=== PATIENT | female | born 1980 | race Caucasian/White ===

== ENCOUNTER 2020-08-10 18:41 | Emergency (ER) | payer BC ==
[~2020-08-10] VITALS: Ht 162.6 cm; Wt 72.1 kg
[~2020-08-10 18:41] MED LIST: ALLEGRA180 MG PO; ARMOUR THYROID60 MG PO; CALCARB 600 W-1 EACH PO; CHANTIX1 MG PO; IBUPROFEN400 MG PO; IBUPROFEN800 MG PO; LEVOTHROID137 MCG PO; VICODIN 5-5001 EACH PO
--- OUTSIDE RECORDS SUMMARY | 2020-08-10 18:44 | XMS ---
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 EJuliocesar VISIT COUNT (12 MO.) [address] [place] [address] TOTAL 8 NOTE: Visits indicate total known visits. ED/UCC VISIT TRACKING (12 MO.) 08/10/2020 18:42 [facility] [place] TYPE: Emergency COMPLAINT: - LT TOE INJURY 07/24/2020 11:32 [facility] [place] TYPE: Emergency DIAGNOSES: - Postprocedural hemorrhage of a genitourinary system organ or structure following a genitourinary system procedure - POST OP ISSUES 07/21/2020 17:55 [facility] [place] TYPE: Emergency DIAGNOSES: - POST OP BLEEDING - Postprocedural hemorrhage of a genitourinary system organ or structure following a genitourinary system procedure 07/15/2020 18:51 [facility] [place] TYPE: Emergency DIAGNOSES: - Abnormal uterine and vaginal bleeding, unspecified - vaginal bleeding 06/09/2020 10:21 [facility] [place] TYPE: Emergency DIAGNOSES: - Unspecified ovarian cyst, left side - Pelvic and perineal pain - OVARY PAIN HX OF CYST 12/21/2019 15:16 [facility] [place] TYPE: Emergency DIAGNOSES: - BLOOD IN STOOL - Lower abdominal pain, unspecified 12/14/2019 05:[address] [facility] [place] TYPE: Emergency DIAGNOSES: - Lower abdominal pain, unspecified - ABD PAIN 10/08/2019 17:[address] [facility] [place] TYPE: Emergency DIAGNOSES: - Unspecified injury of abdomen, initial encounter - POSS MUSCLE STRAIN INPATIENT VISIT TRACKING (12 MO.) No inpatient visits to display in this time frame [email or web address]
[2020-08-10] MEDS ORDERED: LEVOTHYROXINE125 MCG PO (18:52)
[2020-08-10] MEDS ORDERED: VALACYCLOVIR500 MG PO (18:52)
[2020-08-10] MEDS ORDERED: IBUPROFEN600 MG PO (18:53)
== END 2020-08-10 20:04 | disposition home or self-care (01) ==
LOC: ED 18:41
DX: S91.202A Unspecified open wound of left great toe with damage to nail, initial encounter (principal); W22.8XXA Striking against or struck by other objects, initial encounter; F17.200 Nicotine dependence, unspecified, uncomplicated; Z79.899 Other long term (current) drug therapy
CPT/HCPCS: 11760; 99283-25

== ENCOUNTER 2021-05-10 05:45 | Day surgery (SDC) | payer OTHER ==
[~2021-05-10] VITALS: Ht 162.6 cm; Wt 77.0 kg
[~2021-05-10 05:45] MED LIST changes: +IBUPROFEN600 MG PO; +LEVOTHYROXINE125 MCG PO; +VALACYCLOVIR500 MG PO
--- NOTE | 2021-05-10 08:38 | NUR ---
05/10/21 0838 Deanna Zimmerman 0836 PATIENT AWAKE BUT DROWSY. RESP EVEN AND UNLABORED, COUGHING ON ARRIVAL. MASK AT 6 LITERS. PILLOW AND ICE TO ABD.
--- NOTE | 2021-05-10 09:28 | NUR ---
0920: PT TO DS RM 5 FROM PACU AWAKE AND ALERT. PT RATES PAIN 8/10 AND STATES "A LITTLE, BUT NOT BAD" WHEN ASKED ABOUT NAUSEA. PT TOLERATES WATER AND JELLO WITH NO COMPLAINTS OF NAUSEA. [facility] NALDOER PLACED ON WARM AND PT TUCKS UNDER BLANKETS. CALL LIGHT WITHIN REACH, DC CRITERIA EXPLAINED.
[2021-05-10] MEDS ORDERED: HYDROCODON-ACE1 EAC8 PO (09:46)
--- NOTE | 2021-05-10 10:07 | NUR ---
0940: PT SPOUSE TO DS DEPT TO RETRIEVE PAPER RX TO DROP AT LOCAL PHARMACY. 1000: PT USES CALL LIGHT TO ALERT DS STAFF OF URGE TO VOID, PT ASSISTED TO SIDE OF BED PRIOR TO STANDING, DENIES DIZZINESS OR NAUSEA WITH POSITION CHANGE. PT AMBULATES WITH STEADY GAIT AND RN ASSIST TO BATHROOM, ABLE TO VOID APPROX 400 MLS YELLOW URINE. LINENS DAMP AND BEDDING CHANGED AT THIS TIME. PT BACK TO DS RM 5 AND SPOUSE IN ROOM AT THIS TIME. [facility] HUGGER ON WARM PLACED UNDER BLANKETS AND SCD'S REMOVED PER PT REQUEST- PT EDUCATED TO PUMP FEET/MOVE LEGS WHILE OFF. CALL LIGHT WITHIN REACH.
--- NOTE | 2021-05-10 10:11 | NUR ---
PT ALERT, ORIENTED AND SEEMS TO BE ENJOYING THE QUIET. PT PLEASANT, ALL OF HER QUESTIONS ASKED ANSWERED. PT'S WILL PICKUP FOLLOWING DC. PT REQUFESTED PRAYER, WILL FOLLOW NEEDED
--- NOTE | 2021-05-10 10:29 | NUR ---
PT RESTING IN BED WITH SPOUSE AT BEDSIDE. PT STATES, "PAIN IS A LITTLE BETTER WITH THAT MEDICATION" AND RATES PAIN 7/10. PT OFFERED IV MED FOR BREAKTHROUGH PAIN BUT DECLINES SHE DOES NOT WANT TO STAY ANY LONGER, WOULD LIKE TO DC HOME. PT ENCOURAGEDT TO GET DRESSED AND OPEN CURTIAN WHEN FINISHED.
--- NOTE | 2021-05-10 10:53 | NUR ---
1040: PT OPENS CURTAIN AND AMBULATES TO BATHROOM. IV REMOVED WNL AND PRESSURE DRESSING PLACED. PULLS PERSONAL VEHICLE TO FRONT ENTRANCE OF HOSPITAL. DC INSTRUCTIONS PRESENTED VERBALLY AND WRITTEN TO PT. PT DC VIA WC FROM RM 5 TO HOME.
--- NOTE | 2021-05-10 18:38 | OR ---
[facility] [address] [place] [place], [place] [address] Signed DATE OF OPERATION: 05/10/2021 SURGEON: Cate Uribe MD PREOPERATIVE DIAGNOSIS: Incarcerated umbilical hernia (5 mm). POSTOPERATIVE DIAGNOSIS: Incarcerated umbilical hernia (5 mm). PROCEDURE: Primary umbilical herniorrhaphy with intraabdominal 4.3 cm Ventralex mesh. ESTIMATED BLOOD LOSS: None. INDICATIONS: Mohamud is a 40-year-old female, who works at a local [employer]. It is very physical heavy work. She has to operate [employer]. 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 On January 02, 2021, she was pulling the boards and felt burning and pulling in her mid abdomen and around her umbilicus. 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 She was sent to the [facility] that same day. They ordered a CT scan performed on January 09, 2021. It demonstrated an umbilical hernia containing incarcerated fat. She saw her primary care provider on January 12, 2021. She had been placed on light duty status. She was asked to see me as a general surgeon. She said it has been difficult to sleep. She is often nauseated from the pain. It is worse with any increased activity. In the office one could palpate a small umbilical hernia at the base of the umbilicus, it was incarcerated and tender. No local signs or symptoms of infection. I gave her our brochure on hernias. We had reviewed the nature of an umbilical hernia. We reviewed primary suture repair versus mesh repair. She understands expected intraop and postop course. There is risk including, but not limited to bleeding, infection, scarring, change in contour of the skin, damage to bowel, infection of mesh, requiring removal, recurrent hernias, and chronic pain. She had expressed understanding and wished to proceed. Unfortunately, she and her ended up with COVID, so her surgery was delayed. She presents today for her surgery. DESCRIPTION OF PROCEDURE: I met with Mohamud in the preop area. We have reviewed her above findings. After this, she was taken into the operating room and placed in the supine position under general Electronically Signed By: CATE URIBE MD 05/10/21 1838 PATIENT NAME: MOHAMUD PHAM OPERATIVE REPORT DATE OF : 84 REPORT #: [id number] PHYSICIAN: CATE URIBE MD PCP: VANESSA GUTIERREZ REPORT IS CONFIDENTIAL AND NOT TO BE RELEASED WITHOUT AUTHORIZATION [facility] [address] [place], [place] [address] Signed anesthesia. She was given preoperative antibiotics along with subcutaneous heparin. SCDs were utilized. She was prepped and draped in the usual sterile fashion. A standard infraumbilical transverse incision was made and carried down around the umbilicus bluntly and with the cautery. The hernia was from the fascial defect with the help of cautery. It contained incarcerated adipose tissue. It took a few minutes to pull the adipose tissue out of the small hernia sac. After this, we used our 4.3 cm round Ventralex mesh and we placed that in the abdominal cavity and brought up, flushed against the posterior abdominal wall. The fascial defect was closed transversely with a running #1 Prolene suture. Several passes of the suture went through the tab on the mesh to help hold it in place. The mesh was cut, flushed with the abdominal wall and discarded. Local anesthetic was injected into the abdominal wall and the subcutaneous tissues. The wound was irrigated and suctioned out until clear. We brought the umbilical skin back down to the midline fascia with an interrupted 2-0 PDS suture. The dermis was reapproximated with interrupted 3-0 subcuticular Monocryl sutures. A running 5-0 fast absorbing plain gut suture was used to reapproximate the skin edges. Dry gauze and tape were then applied. Mohamud was awakened from anesthesia, extubated in the OR, and taken to recovery room in stable condition. Cate Uribe MD ALB/MODL /[id number] cc: Patient Chart Vanessa Gutierrez, Nurse Practitioner [facility] Cate Uribe MD Copies: CATE URIBE MD ~ Electronically Signed By: CATE URIBE MD 05/10/21 1838 PATIENT NAME: MOHAMUD PHAM OPERATIVE REPORT DATE OF : 84 REPORT #: [id number] PHYSICIAN: CATE URIBE MD PCP: VANESSA GUTIERREZ REPORT IS CONFIDENTIAL AND NOT TO BE RELEASED WITHOUT AUTHORIZATION
== END 2021-05-10 10:45 | disposition home or self-care (01) ==
LOC: DS 05:45
PROVIDERS: ATTEND Colon & Rectal Surgery
PROC: 0WUF0JZ Supplement Abdominal Wall with Synthetic Substitute, Open Approach (ICD-10-PCS; principal; 2021-05-10 08:15)
DX: K42.0 Umbilical hernia with obstruction, without gangrene (principal); Z87.891 Personal history of nicotine dependence
CPT/HCPCS: C1781; J0131; J0330; J0690; J1100; J1644; J1885; J2001; J2250; J2405; J2704; J3010; J7121

== ENCOUNTER 2021-05-29 19:30 | Emergency (ER) | payer OTHER ==
[~2021-05-29] VITALS: Ht 162.6 cm; Wt 76.7 kg
[~2021-05-29 19:30] MED LIST changes: +HYDROCODON-ACE1 EAC8 PO
[2021-05-29] MEDS ORDERED: CARAFATE1 GM PO (21:33)
== END 2021-05-29 21:55 | disposition home or self-care (01) ==
LOC: ED 19:30
DX: K29.70 Gastritis, unspecified, without bleeding (principal); E07.9 Disorder of thyroid, unspecified; R73.03 Prediabetes; F17.200 Nicotine dependence, unspecified, uncomplicated; Z79.899 Other long term (current) drug therapy
CPT/HCPCS: 36415; 74177; 80053; 81001; 83690; 84484; 85025; 99284-25; Q9967